=== PATIENT | female | born 1945 | race Two or more races ===

== ENCOUNTER 2023-01-10 06:37 | Day surgery (SDC) | payer OTHER | END 2023-01-10 10:55 | disposition home or self-care (01) | LOC: AMB-ENDOS 06:37 | PROVIDERS: ATTEND Surgery | DX: D12.3 Benign neoplasm of transverse colon (principal); Z86.010 Personal history of colon polyps; Z20.822 Contact with and (suspected) exposure to COVID-19 ==

== ENCOUNTER 2023-03-27 08:52 | Outpatient (CLI) | payer OTHER | END 2023-03-27 08:54 | disposition home or self-care (01) | LOC: SONOGRAMA 08:52 | PROVIDERS: ATTEND Pathology Anatomic Pathology & Clinical Pathology | DX: D34 Benign neoplasm of thyroid gland (principal); E04.9 Nontoxic goiter, unspecified ==